=== PATIENT | female | born 1990 | race Caucasian/White ===

== ENCOUNTER 2019-03-11 14:24 | Emergency (ER) | payer BC, SELFPAY ==
[2019-03-11 14:30] VITALS: BP 109/62; PULSE 78; RESP 16; TEMP 36.5; O2SAT 100
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
[2019-03-11] MEDS: Lidocaine/Epinephri/Tetracaine Topical Gel 3 ML (15:00)
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
--- NOTE | 2019-03-11 16:25 | DI.VRAD_ITS ---
EXAM: XR Left Ankle EXAM DATE/TIME: 03/11/2019 4:06 PM CLINICAL HISTORY: 28 years old, female; Injury or trauma; Injury history: Internal rotational injury; Initial encounter; Sprain or strain; Ankle; Left TECHNIQUE: Imaging protocol: XR Left ankle. Views: 3 or more views. COMPARISON: No relevant prior studies available. FINDINGS: Bones/joints: Normal. Soft tissues: Normal. IMPRESSION: No acute findings. Dictated and Authenticated by: Kathy Fajardo MD. Ordering:CLIFF Moses MD
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
[2019-03-11 16:49] VITALS: BP 109/62; PULSE 78; RESP 16; TEMP 36.5; O2SAT 100
== END 2019-03-11 16:55 | disposition home or self-care (01) ==
PROVIDERS: Emergency Provider Physician Assistant; PCP Hospitalist
DX: S92.252A Displaced fracture of navicular [scaphoid] of left foot, initial encounter for closed fracture (principal); S81.012A Laceration without foreign body, left knee, initial encounter; V17.0XXA Pedal cycle driver injured in collision with fixed or stationary object in nontraffic accident, initial encounter
CPT/HCPCS: 12002; 29515; 99284; 73610; 73630; 99282; L4361

== ENCOUNTER 2019-07-04 01:40 | Outpatient (CLI) | payer BC, SELFPAY ==
[2019-07-04 11:23] LABS: Potassium 4.4 mmol/L (3.5-5.1)
== END 2019-07-04 02:00 ==
PROVIDERS: PCP Hospitalist; Visit Provider Hospitalist
DX: E87.5 Hyperkalemia (principal)
CPT/HCPCS: 36415; 84132

== ENCOUNTER 2021-12-16 02:28 | Outpatient (CLI) | payer OTHER, SELFPAY ==
[2021-12-16 16:06] LABS: ALT 24 U/L (14-59); AST 17 U/L (15-37); Albumin 3.9 g/dL (3.4-5.0); Alkaline Phosphatase 45 U/L (46-116); Bilirubin, Direct 0.1 mg/dL (0.0-0.2); Bilirubin, Total 0.4 mg/dL (0.2-1.0); Total Protein 6.6 g/dL (6.4-8.2)
== END 2021-12-16 02:29 | disposition home or self-care (01) ==
LOC: LBO 02:28
PROVIDERS: PCP Hospitalist; Visit Provider Hospitalist
DX: Z13.818 Encounter for screening for other digestive system disorders (principal)
CPT/HCPCS: 36415; 80076

== ENCOUNTER 2022-07-30 10:21 | Outpatient (CLI) | payer BC, SELFPAY ==
--- NOTE | 2022-07-30 10:15 | RT.EKG_ITS ---
APPROVED REPORT Exam: Resting ECG Reason for Exam: Pre-op exam - Knee surgery Patient Location: O HR:61 bpm ECG Measurements Heart Rate 61 AXIS HI 114 P -8 QRSd 79 QRS 67 QT 429 T 14 QTc 432 Conclusion Sinus rhythm...normal P axis, V-rate 50- 99 Borderline short HI interval...HI int <120mS
== END 2022-07-30 10:22 | disposition home or self-care (01) ==
LOC: DI.KIM 10:23
PROVIDERS: PCP Nurse Practitioner Adult Health; Visit Provider Nurse Practitioner Adult Health
DX: Z01.818 Encounter for other preprocedural examination (principal)
CPT/HCPCS: 93010

== ENCOUNTER 2022-11-19 03:15 | Outpatient (CLI) | payer BC, SELFPAY ==
[2022-11-19 13:15] LABS: Abs Immature Grans 0.02 10^3/uL (0.0-0.06); Absolute Basophil Count 0.05 10^3/uL (0.0-0.2); Absolute Eosinophil Count 0.11 10^3/uL (0.0-0.7); Absolute Lymphocyte Count 1.94 10^3/uL (1.2-3.4); Absolute Monocyte Count 0.64 10^3/uL (0.1-0.8); Absolute Neutrophil Count 4.63 10^3/uL (1.2-6.7); Basophils % 0.7; Eosinophils % 1.5; HCT 40.7 % (36.0-46.0); HGB 13.4 g/dL (11.2-15.7); Immature Grans % 0.3; Lymphocytes % 26.3; MCH 29.5 pg (27.0-33.0); MCHC 32.9 % (32.0-36.0); MCV 90 fL (80-95); MPV 10.3 fL (8.0-11.0); Monocytes % 8.7; Neutrophils % 62.5; Platelet Count 226 10^3/uL (130-400); RBC 4.55 10^6/uL (3.93-5.22); RDW 11.7 % (11.7-14.6); RDW-SD 38.1 fL; WBC 7.39 10^3/uL (4.4-10.8)
[2022-11-19 14:09] LABS: Vitamin D 25 Total 34.2 ng/mL (30-100)
[2022-11-19 14:11] LABS: ALT 20 U/L (14-59); AST 14 U/L (15-37); Albumin 4.4 g/dL (3.4-5.0); Alkaline Phosphatase 61 U/L (46-116); Anion Gap 6.5 mmol/L (3-11); BUN 13 mg/dL (7-18); Bilirubin, Total 0.2 mg/dL (0.2-1.0); CO2 31.5 mmol/L (21.0-32.0); CREATININE 0.9 mg/dL (0.55-1.02); Calcium 9.2 mg/dL (8.5-10.1); Chloride 103 mmol/L (98-107); Estimated GFR 87.65 (mL/min/1.73m2); Folate 17.1 ng/mL (8.6-20.0); Glucose 93 mg/dL (74-106); Potassium 3.7 mmol/L (3.5-5.1); Sodium 141 mmol/L (136-145); TSH (W/Ref FT4) 1.24 uIU/mL (0.36-3.74); Total Protein 7.6 g/dL (6.4-8.2); Vitamin B12 964 pg/mL (193-986)
[2022-11-20 10:18] LABS: Lyme Ab w Rflx to Lyme Confirm Negative (Negative)
[2022-11-22 17:14] LABS: Anaplasma phagocytophilum Negative (Negative); B. miyamotoi PCR Negative (Negative); Babesia divergens/MO-1 Negative (Negative); Babesia duncani Negative (Negative); Babesia microti Negative (Negative); Ehrlichia chaffeensis Negative (Negative); Ehrlichia ewingii/canis Negative (Negative); Ehrlichia muris eauclairensis Negative (Negative)
== END 2022-11-19 03:16 | disposition home or self-care (01) ==
LOC: LBO 03:15
PROVIDERS: PCP Nurse Practitioner Adult Health; Visit Provider Nurse Practitioner Adult Health
DX: R53.83 Other fatigue (principal)
CPT/HCPCS: 36415; 80053; 82306; 87798; 82607; 82746; 84443; 85025; 86618